=== PATIENT | female | born 1945 | race Caucasian/White ===

== ENCOUNTER 2020-03-22 09:05 | Emergency (ER) | payer MEDICARE, OTHER ==
--- NOTE | 2020-03-22 09:26 | EDM.PDOC ---
ED HPI GENERAL MEDICAL PROBLEM - General Stated Complaint: FACE FEELS FUNNY,L EYE BLURRY Time Seen by Provider: 03/22/20 09:07 Source of Information: Reports: Patient History Limitations: Reports: No Limitations - History of Present Illness INITIAL COMMENTS - FREE TEXT/NARRATIVE: Patient presents with blurry vision in left eye, left face numbness, left eyelid swelling, left frontal headache and a "funny" feeling in left arm/hand. The headache started last night and the other symptoms she noticed when she awoke at 0600 today. She hasn't noticed any extremity weakness. The blurry vision in the left eye has been the most significant thing. She has had TIAs in the past and takes Plavix for it. She is taking it as directed. She also smokes about 1 ppd. - Related Data Allergies Allergy/AdvReac Type Severity Reaction Status Date / Time milk Allergy Cannot Verified 03/22/20 09:35 Remember Penicillins Allergy Cannot Verified 03/22/20 09:35 Remember Home Meds: Home Meds Clopidogrel Bisulfate [Plavix] 75 mg PO DAILY 03/22/20 [History] ED ROS GENERAL - Review of Systems Review Of Systems: See Below Constitutional: Denies: Fever, Malaise, Weakness, Diaphoresis HEENT: Reports: Vision Change. Denies: Ear Pain, Throat Pain Respiratory: Denies: Shortness of Breath, Cough Cardiovascular: Denies: Chest Pain, Lightheadedness, Syncope GI/Abdominal: Denies: Abdominal Pain, Diarrhea, Vomiting : Reports: Dysuria (treating a UTI currently; getting much better). Denies: Flank Pain Musculoskeletal: Denies: Neck Pain, Shoulder Pain, Arm Pain, Back Pain, Hand Pain, Leg Pain Skin: Denies: Cyanosis, Jaundice, Mottled, Pallor, Diaphoresis Neurological: Reports: Headache, Numbness. Denies: Confusion, Dizziness, Seizure, Syncope, Trouble Speaking, Difficulty Walking Psychiatric: Denies: Agitation, Anxiety, Confusion ED EXAM, NEURO - Physical Exam Exam: See Below Exam Limited By: No Limitations General Appearance: Alert, WD/WN, No Apparent Distress Eye Exam: Left Eye: Other (left eyebrow doesn't elevate as much as right; about 40-50%. Left eyelids are puffy but not red), Bilateral Eye: EOMI, PERRL (full visual hirsch bilat) Ears: Normal External Exam, Hearing Grossly Normal Nose: Normal Inspection, No Blood Throat/Mouth: Normal Inspection, Normal Lips, Normal Voice, No Airway Compromise , Other (no mouth droop) Head Exam: Atraumatic, Normocephalic Neck: Normal Inspection, Full Range of Motion Respiratory/Chest: No Respiratory Distress, Lungs Clear, Normal Breath Sounds, No Accessory Muscle Use Cardiovascular: Regular Rate, Rhythm, No Murmur GI/Abdominal: Normal Bowel Sounds, Soft Neurological: Alert, Normal Mood/Affect, Normal Dorsiflexion, CN II-XII Intact, Normal Plantar Flexion, Oriented x 3 Back Exam: Normal Inspection, Full Range of Motion. No: CVA Tenderness (L), CVA Tenderness (R) Extremities: Normal Inspection, Normal Range of Motion, Non-Tender Psychiatric: Normal Affect, Normal Mood Skin Exam: Warm, Dry, Intact, Normal Color, No Rash Course - Vital Signs Last Recorded V/S: Last Vital Signs Temp 97.6 F 03/22/20 09:26 Pulse 65 03/22/20 09:26 Resp 18 03/22/20 09:26 BP 153/85 H 03/22/20 09:26 Pulse Ox 98 03/22/20 09:26 - Orders/Labs/Meds Labs: Laboratory Tests 03/22/20 03/22/20 Range/Units 09:28 09:28 WBC 6.98 (5.00-10.00) 10^3/uL RBC 4.79 (3.80-5.50) 10^6/uL Hgb 14.9 (12.0-16.0) g/dL Hct 44.5 (37.0-47.0) % MCV 92.9 H (82.0-92.0) fL MCH 31.1 H (27.0-31.0) pg MCHC 33.5 (32.0-36.0) g/dL RDW 13.5 (11.5-14.5) % Plt Count 262 (150-400) 10^3/uL MPV 8.9 (7.4-10.4) fL Immature Gran % (Auto) 0.1 (0.0-5.0) % Neut % (Auto) 62.5 (50.0-70.0) % Lymph % (Auto) 29.4 (20.0-40.0) % [place] % (Auto) 7.3 (2.0-8.0) % Eos % (Auto) 0.4 L (1.0-3.0) % Baso % (Auto) 0.3 (0.0-1.0) % Neut # (Auto) 4.36 (2.50-7.00) 10^3/uL Lymph # (Auto) 2.05 (1.00-4.00) 10^3/uL [place] # (Auto) 0.51 (0.10-0.80) 10^3/uL Eos # (Auto) 0.03 L (0.10-0.30) 10^3/uL Baso # (Auto) 0.02 (0.00-0.10) 10^3/uL Immature Gran # (Auto) 0.01 (0.00-0.50) 10^3/uL Sodium 135 L (136-145) mmol/L Potassium 4.2 (3.3-5.3) mmol/L Chloride 99 (98-115) mmol/L Carbon Dioxide 27.4 (21.0-32.0) mmol/L Anion Gap 12.8 (5-15) mmol/L BUN 15 (6-25) mg/dL Creatinine 0.49 L (0.51-1.17) mg/dL Est Cr Clr Drug Dosing 95.72 mL/min Estimated GFR (MDRD) > 60 mL/min Glucose 99 (75 - 99) mg/dL Calcium 8.9 (8.7-10.3) mg/dL - Re-Assessments/Exams Free Text/Narrative Re-Assessment/Exam: 03/22/20 09:50 NIH scale is 1. I discussed case with neurologist, Dr. Lane in [place] who feels it is most likely [place] Palsy but says to know for sure will need MRI. Discussed with patient and she is okay with going to [place] for this. Discussed case with ER Dr. Dorsey who accepted for transfer to [facility] ER for MRI and evaluation. Blurry vision is persisting along with left eyebrow weakness. Patient otherwise stable. Departure - Departure Time of Disposition: 09:59 Disposition: DC/Tfer to Acute Hospital 02 Condition: Good Clinical Impression: Facial weakness, Blurry vision, left eye - Discharge Information Referrals: Long,Joanne B, [employer] [Primary Care Provider] - Sepsis Event Note - Focused Exam Vital Signs: Vital Signs Temp Pulse Resp BP Pulse Ox 03/22/20 09:26 97.6 F 65 18 153/85 H 98 Date Exam was Performed: 03/22/20 Time Exam was Performed: 09:59
--- NOTE | 2020-03-22 09:30 | CT ---
[id number] CT/CT Head Stroke Protocol EXAM: CT Head Stroke Protocol CLINICAL DATA: BLURRY VISION. COMPARISON STUDY: 2013. FINDINGS: No intracranial hemorrhage, extra-axial fluid collection, mass, or acute ischemia. 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 No hydrocephalus. Paranasal sinuses and mastoid air cells are clear. IMPRESSION: No acute intracranial findings. Chronic findings are described above. Alfredo Rodriguez MD 03/22/20 0928 Thank you for allowing us to participate in the care of your patient.
[2020-03-22 09:31] VITALS: BP 153/85; PULSE 65
[2020-03-22 09:55] LABS: ANION GAP 12.8 mmol/L (5-15); CHLORIDE,CL 99 mmol/L (98-115); SODIUM,NA 135 mmol/L (136-145)
== END 2020-03-22 10:05 ==
LOC: KA.ED 09:05
DX: R29.810 Facial weakness (principal); H53.8 Other visual disturbances; Z88.0 Allergy status to penicillin; Z91.011 Allergy to milk products; Z79.02 Long term (current) use of antithrombotics/antiplatelets
CPT/HCPCS: 70450; 80048; 85025; 99283; 99285-25

== ENCOUNTER 2024-10-04 21:35 | Emergency (ER) | payer MEDICARE ==
[2024-10-04] MEDS: Sodium Chloride 0.9% 10 ML Syringe FLUSH PRN (21:59)
[2024-10-04 22:11] LABS: BASOPHILS ABSOLUTE AUTO 0.07 10^3/uL (0.00-0.10); BASOPHILS PERCENT AUTO 0.8 % (0.0-1.0); EOSINOPHILS ABSOLUTE AUTO 0.07 10^3/uL (0.10-0.30); EOSINOPHILS PERCENT AUTO 0.8 % (1.0-3.0); HEMATOCRIT 44.4 % (37.0-47.0); HEMOGLOBIN 14.2 g/dL (12.0-16.0); IMMATURE GRAN ABSOLUTE AUTO 0.01 10^3/uL (0.00-0.50); IMMATURE GRAN PERCENT AUTO 0.1 % (0.0-5.0); LYMPHOCYTES ABSOLUTE AUTO 1.58 10^3/uL (1.00-4.00); LYMPHOCYTES PERCENT AUTO 17.5 % (20.0-40.0); MEAN CORPUSCULAR HEMOGLOBIN 29.3 pg (27.0-31.0); MEAN CORPUSCULAR VOLUME 91.7 fL (82.0-92.0); MEAN PLATELET VOLUME 9.9 fL (7.4-10.4); MONOCYTES ABSOLUTE AUTO 0.85 10^3/uL (0.10-0.80); MONOCYTES PERCENT AUTO 9.4 % (2.0-8.0); NEUTROPHILS ABSOLUTE AUTO 6.44 10^3/uL (2.50-7.00); NEUTROPHILS PERCENT AUTO 71.4 % (50.0-70.0); PLATELET COUNT,PLT 258 10^3/uL (150-400); RED BLOOD CELL COUNT 4.84 10^6/uL (3.80-5.50); WHITE BLOOD CELL COUNT,WBC 9.02 10^3/uL (5.00-10.00)
[2024-10-04 22:28] LABS: ALBUMIN 3.88 g/dL (3.40-5.00); ANION GAP 12.6 mmol/L (5-15); BILIRUBIN TOTAL 0.7 mg/dL (0.2-1.0); C-REACTIVE PROTEIN 2.05 mg/dL (0.00-0.50); CALCIUM 8.3 mg/dL (8.7-10.3); CARBON DIOXIDE,CO2 27.7 mmol/L (21.0-32.0); CREATININE 0.73 mg/dL (0.51-1.17); EST CRCL DRUG DOSING (CG) 55.73 mL/min; POTASSIUM,K 4.3 mmol/L (3.5-5.1); PROTEIN TOTAL,TP 7.9 g/dL (6.4-8.2)
[2024-10-04] MEDS: Acetaminophen/HYDROcodone 325-5 MG Tab PO ONE (22:33)
[2024-10-04] MEDS: ceFAZolin 1 GM Vial IVPUSH ONE (22:56)
[2024-10-04] MEDS: Cephalexin 250 MG Cap PO ONE (23:15)
[2024-10-05 00:42] VITALS: BP 187/80; PULSE 63
== END 2024-10-04 23:23 | disposition home or self-care (01) ==
LOC: KA.ED 21:35
DX: L03.114 Cellulitis of left upper limb (principal); Z90.710 Acquired absence of both cervix and uterus; Z79.899 Other long term (current) drug therapy; Z91.011 Allergy to milk products; Z88.0 Allergy status to penicillin; Z91.018 Allergy to other foods
CPT/HCPCS: 36415; 80053; 83605; 85025; 86140; 87040; 96374; 99283; A9270; J0690; 99284; J3490